=== PATIENT | male | born 1995 | race Caucasian/White ===

== ENCOUNTER 2017-05-28 06:58 | Day surgery (SDC) | payer OTHER ==
[2017-05-28] MEDS ORDERED: MIDAZOLAM 1 MG/ML 2 ML INJ ×3 (09:00)
[2017-05-28] MEDS ORDERED: FENTAnyl 50 MCG/ML VIAL (09:00)
== END 2017-05-28 11:12 | disposition home or self-care (01) ==
LOC: GIL 06:58
DX: K29.30 Chronic superficial gastritis without bleeding (principal); K44.9 Diaphragmatic hernia without obstruction or gangrene; K20.8 Other esophagitis
CPT/HCPCS: 43239; 88305; 88312